=== PATIENT | male | born 1965 ===

== ENCOUNTER 2025-02-08 15:56 | Inpatient (IN) | payer OTHER ==
[~2025-02-08] VITALS: Ht 172.7 cm; Wt 72.1 kg
[2025-02-08] MEDS ORDERED: Ketorolac Tromethamine 15mg Vial IV ONE (16:10)
[2025-02-08 17:25] LABS: BASOPHILS ABSOLUTE AUTO 0.08 K/mm3 (0.00-0.23); BASOPHILS PERCENT AUTO 0 % (0-2); EOSINOPHILS ABSOLUTE AUTO 0.04 K/mm3 (0.00-0.68); EOSINOPHILS PERCENT AUTO 0 % (0-6); Hematocrit 45.4 % (37.0-53.0); Hemoglobin 15.2 g/dL (13.5-17.5); IMMATURE GRAN ABSOLUTE AUTO 0.11 K/mm3 (0.00-0.10); IMMATURE GRAN PERCENT AUTO 1 % (0-1); LYMPHOCYTES ABSOLUTE AUTO 0.83 K/mm3 (0.84-5.20); LYMPHOCYTES PERCENT AUTO 4 % (21-46); MONOCYTES ABSOLUTE AUTO 1.58 K/mm3 (0.16-1.47); MONOCYTES PERCENT AUTO 8 % (4-13); Mean Corpuscular HGB 30.2 pg (26.0-34.0); Mean Corpuscular HGB Conc 33.5 g/dL (31.5-36.5); Mean Corpuscular Volume 90 fL (80-100); Mean Platelet Volume 9.9 fL (9.1-12.4); NEUTROPHILS PERCENT AUTO 87 % (41-73); Platelet Count 238 K/mm3 (150-400); RDW Coefficient Variation 13.1 % (11.7-14.2); RDW Standard Deviation 42.8 fL (35.1-46.3); Red Blood Cell Count 5.04 M/mm3 (4.30-5.90); White Blood Cell Count 20.54 K/mm3 (4.00-11.30)
[2025-02-08 17:43] LABS: Albumin, Blood 3.7 g/dL (3.4-5.0); Albumin/Globulin Ratio 1.2 (0.8-1.8); Bilirubin, Total 2.1 mg/dL (0.1-1.0); Bun/Creatinine Ratio 15.9 (12.0-20.0); Calcium, Blood 9.2 mg/dL (8.5-10.1); Creatinine, Blood 0.95 mg/dL (0.60-1.20); Potassium, Blood 3.8 mmol/L (3.5-5.5); Total Protein, Blood 6.7 g/dL (6.4-8.2)
[2025-02-08] MEDS ORDERED: FentaNYL Citrate 50 MCG/ML 2 ML Injection IV ONE ×2 (19:20→21:40)
[2025-02-08] MEDS ORDERED: Ampicillin Sod/Sulbactam Sod 3 GM in NS 100 ML IV ONE (19:20)
[2025-02-08] MEDS ORDERED: Benzocaine Oral Spray 0.5ML UD MT ONE ×2 (19:20→20:30)
[2025-02-08] MEDS ORDERED: LORazepam 2 MG/ML 1ML Injection IV ONE (20:20)
[2025-02-08] MEDS ORDERED: Ketorolac Tromethamine 30mg Vial IV PRN (22:35)
[2025-02-08] MEDS ORDERED: Ondansetron HCl 2 MG / ML 2ML Vial IV PRN (22:35)
[2025-02-08] MEDS ORDERED: FentaNYL Citrate 50 MCG/ML 2 ML Injection IV PRN (22:35)
[2025-02-08] MEDS ORDERED: NS 1,000 ML IV ONE (22:35)
[2025-02-08] MEDS ORDERED: HYDROmorphone HCl/Pf 1MG SYR IV ONE (22:45)
[2025-02-08] MEDS ORDERED: MethylPREDNISolone Sod Succ 125 MG Vial IV SCH (23:00)
[2025-02-08] MEDS ORDERED: Enoxaparin 40 MG/0.4 ML SYR SC SCH (23:00)
[2025-02-09] MEDS ORDERED: Ampicillin Sod/Sulbactam Sod 3 GM in NS 100 ML IV SCH
[2025-02-09 00:32] VITALS: BP 151/82
[2025-02-09] MEDS ORDERED: Prinivil10 MG PO (00:34)
[2025-02-09] MEDS ORDERED: KRILL OIL 1,001 EACH PO (00:35)
[2025-02-09] MEDS ORDERED: MULTI-VITAMIN1 EAC2 PO (00:36)
[2025-02-09] MEDS ORDERED: VIT D3-VIT K21 EACH (00:37)
[2025-02-09 03:59] VITALS: BP 131/74
--- NOTE | 2025-02-09 04:07 | NUR ---
SHIFT SUMMARY PATIENT APPEARS TO BE RESTING COMFORTABLY AT THIS TIME. VITAL SIGNS ARE STABLE. HE STATES THAT PAIN IS IMPROVING. NS IS INFUSING WITHOUT COMPLICATIONS. MEDICATED WITH 50 MCGS OF FENTANYL FOR PAIN. IS AT THE BEDSIDE. PATIENT IS ORIENTED X4. HE HAS HIS CALL LIGHT WITHIN REACH. SAFETY PRECAUTIONS ARE BEING MAINTAINED.
[2025-02-09 05:36] LABS: BASOPHILS ABSOLUTE AUTO 0.07 K/mm3 (0.00-0.23); BASOPHILS PERCENT AUTO 0 % (0-2); EOSINOPHILS ABSOLUTE AUTO 0.06 K/mm3 (0.00-0.68); EOSINOPHILS PERCENT AUTO 0 % (0-6); Hematocrit 46.2 % (37.0-53.0); Hemoglobin 15.4 g/dL (13.5-17.5); IMMATURE GRAN ABSOLUTE AUTO 1.97 K/mm3 (0.00-0.10); IMMATURE GRAN PERCENT AUTO 7 % (0-1); LYMPHOCYTES ABSOLUTE AUTO 0.43 K/mm3 (0.84-5.20); LYMPHOCYTES PERCENT AUTO 2 % (21-46); MONOCYTES ABSOLUTE AUTO 1.17 K/mm3 (0.16-1.47); MONOCYTES PERCENT AUTO 4 % (4-13); Mean Corpuscular HGB 30.1 pg (26.0-34.0); Mean Corpuscular HGB Conc 33.3 g/dL (31.5-36.5); Mean Corpuscular Volume 90 fL (80-100); Mean Platelet Volume 10.5 fL (9.1-12.4); NEUTROPHILS PERCENT AUTO 86 % (41-73); Platelet Count 240 K/mm3 (150-400); RDW Coefficient Variation 13.1 % (11.7-14.2); RDW Standard Deviation 43.6 fL (35.1-46.3); Red Blood Cell Count 5.11 M/mm3 (4.30-5.90)
[2025-02-09 06:02] LABS: Albumin, Blood 3.3 g/dL (3.4-5.0); Bilirubin, Total 1.9 mg/dL (0.1-1.0); Bun/Creatinine Ratio 17.6 (12.0-20.0); Calcium, Blood 9.2 mg/dL (8.5-10.1); Creatinine, Blood 0.97 mg/dL (0.60-1.20); Globulin, Blood 3.4 g/dL (2.2-4.0); Potassium, Blood 3.8 mmol/L (3.5-5.5); Total Protein, Blood 6.7 g/dL (6.4-8.2)
[2025-02-09 06:11] LABS: BAND PERCENT MAN 12 % (0-8); BASOPHILS PERCENT MAN 0 % (0-2); EOSINOPHILS PERCENT MAN 0 % (0-6); LYMPHOCYTES ABSOLUTE MAN 0.54 K/mm3 (0.84-5.20); LYMPHOCYTES PERCENT MAN 2 % (21-46); MONOCYTES ABSOLUTE MAN 1.62 K/mm3 (0.16-1.47); MONOCYTES PERCENT MAN 6 % (4-13); NEUTROPHILS ABSOLUTE MAN 24.93 K/mm3 (1.96-9.15); SEG NEUTROPHILS PERCENT MAN 80 % (41-73); TOTAL CELLS COUNTED 100
[2025-02-09 07:14] VITALS: BP 146/70
[2025-02-09] MEDS ORDERED: Lisinopril 10 MG Tab PO SCH (09:00)
--- NOTE | 2025-02-09 09:00 | NUR ---
Pt resting in bed, awake a/ox4, at bedside, pt is cooperative with care, doing ok at this time, has been tolerating water without diff, throat is very sore to swallow, lungs are clear t/o, resp even and unlabored, no cough noted, but does produce and gag on secretions, on r/a at this time, hrr, no edema noted, ppp+2, cap refill<3 sec. vs stable, afebrile, piv to lac site is clear and patent, btx4, abd flat soft nontender, voids without diff, skin c/w/d, maew, man, call light in reach.
[2025-02-09] MEDS ORDERED: OxyCODONE HCL 5 MG TAB PO PRN (09:15)
[2025-02-09] MEDS ORDERED: Acetaminophen 325 MG TABLET PO PRN (09:15)
[2025-02-09] MEDS ORDERED: Loratadine 10 MG Tab PO SCH (10:00)
[2025-02-09] MEDS ORDERED: FentaNYL Citrate 50 MCG/ML 2 ML Injection IV PRN (10:15)
[2025-02-09] MEDS ORDERED: Dexamethasone Sodium Phosphate 4 MG/ML 1ML Vial IV SCH (10:27)
--- NOTE | 2025-02-09 10:30 | NUR ---
Dr. Fine in to see pt, is looking to tx pt, pt and spouce understand, made him completly npo and will hold all po meds at this time. call light in reach.
[2025-02-09] MEDS ORDERED: Vancomycin HCL 1,750 MG in NS 500 ML IV SCH (11:00)
[2025-02-09 11:24] VITALS: BP 151/84
[2025-02-09 15:00] VITALS: BP 151/84
[2025-02-09] MEDS ORDERED: NS 1,000 ML IV SCH (15:35)
[2025-02-09] MEDS ORDERED: NS 1,000 ML IV ONE (15:40)
--- NOTE | 2025-02-09 16:26 | NUR ---
Pt has been transfered to [facility] in [place]. left via gurney with transport, report given to Luiza SULLIVAN, iv's left in place, ns continues to infuse as ordered, left with all his belongings. spoke with his , she will meet him there.
[2025-02-09] MEDS ORDERED: Vancomycin HCL 1,250 MG in NS 250 ML IV SCH (23:00)
== END 2025-02-09 16:13 | disposition short-term general hospital (02) | DRG 854 ==
LOC: ER 15:56 → MEDS 22:23
PROVIDERS: Student in an Organized Health Care Education/Training Program; ADMIT Internal Medicine
PROC: 0C9P0ZZ Drainage of Tonsils, Open Approach (ICD-10-PCS; principal; 2025-02-08)
PROC: 3E03329 Introduction of Other Anti-infective into Peripheral Vein, Percutaneous Approach (ICD-10-PCS; 2025-02-08)
DX: A41.9 Sepsis, unspecified organism (principal); J36 Peritonsillar abscess; I10 Essential (primary) hypertension
CPT/HCPCS: 36415; 42700; 70491; 80053; 83880; 85025; 96365; 96375-59; 96376-59; 99285-25; A9270; J0295; J1100; J1171; J1650; J1885; J2060; J2919; J3010; J3370; J7030; J7040; Q9967